=== PATIENT | male | born 1975 | race African-American/Black ===

== ENCOUNTER 2025-02-28 11:20 | Inpatient (IN) | payer MEDICARE, SELFPAY ==
[2025-02-28 11:53] LABS: #Basophils Less than 0.03 10x3/uL (0.0-0.2); #Eosinophils 0.05 10x3/uL (0.0-0.7); #Monocytes 0.35 10x3/uL (0.11-0.59); #Neutrophils 1.88 10x3/uL (1.40-6.50); %Basophils 0.6 % (0.0-1.0); %Eosinophils 1.6 % (0.0-10.0); %Lymphocytes 27.8 % (21.0-51.0); %Monocytes 10.9 % (0.0-10.0); %Neutrophils 58.8 % (42.0-75.0); Hematocrit 37.0 % (42.0-52.0); Hemoglobin 12.7 g/dL (14.0-18.0); Mean Corpuscular Hemoglobin 30.0 pg (27.0-31.0); Mean Corpuscular Volume 87.5 fL (78.0-98.0); Platelet Count 186 10x3/uL (130-400); Red Blood Cell (RBC) Count 4.23 mill/uL (4.70-6.10); White Blood Cell (WBC) Count 3.20 10x3/uL (4.8-10.8)
[2025-02-28 12:17] LABS: Troponin I 0.031 ng/mL (< 0.028)
[2025-02-28 12:22] LABS: ALT (SGPT) 8 U/L (Less than 45); AST (SGOT) 22 U/L (11-34); Albumin 3.5 g/dL (3.1-4.5); Alkaline Phosphatase 68 U/L (40-110); Anion Gap 13 mmol/L (10-20); BUN (Urea Nitrogen) 25 mg/dL (8.9-20.6); Bilirubin, Total 0.7 mg/dL (0.3-1.2); Calc. Creatinine Clearance 0 mL/min (70-130); Calcium 8.7 mg/dL (7.8-10.44); Carbon Dioxide 23 mmol/L (22-29); Chloride 106 mmol/L (98-107); Globulin 3.7 g/dL (2.4-3.5); Glucose 83 mg/dL (70-105); Potassium 3.7 mmol/L (3.5-5.1); Sodium 138 mmol/L (136-145)
[2025-02-28] MEDS ORDERED: Aspirin Chewable 81 MG TAB ONE (13:04)
[2025-02-28] MEDS ORDERED: Nitroglycerin 2% Ointment 1 INCH/1 GM Packet ONE (13:18)
[2025-02-28] MEDS ORDERED: Nitroglycerin 0.4 MG TAB 1 EACH ONE (13:19)
[2025-02-28] MEDS ORDERED: cloNIDine 0.1 MG TAB ONE (13:48)
[2025-02-28 14:15] LABS: Acetaminophen Less than 10 mcg/mL (Less than 10); Salicylate Less than 8.0 mg/dL (Less than 8.0)
[2025-02-28 14:23] LABS: Troponin I 0.028 ng/mL (< 0.028)
[2025-02-28] MEDS ORDERED: Senokot S 8.6-50 MG TAB PO PRN (14:24)
[2025-02-28] MEDS ORDERED: Nitroglycerin 0.4 MG TAB (25 Tab Bottle) SL PRN (14:24)
[2025-02-28] MEDS: Acetaminophen 325 MG TAB PO PRN (20:19)
[2025-02-28] MEDS: Melatonin 3 MG TAB PO PRN (20:19)
[2025-02-28] MEDS: Famotidine 20 MG TAB PO SCH (20:20)
[2025-03-01 05:34] LABS: Anion Gap 15 mmol/L (10-20); BUN (Urea Nitrogen) 29 mg/dL (8.9-20.6); Calc. Creatinine Clearance 69 mL/min (70-130); Calcium 8.4 mg/dL (7.8-10.44); Carbon Dioxide 24 mmol/L (22-29); Cardiac Risk 2.6 (Less than 4.5); Chloride 103 mmol/L (98-107); Cholesterol 161 mg/dl (< 200 Desired); Glucose 87 mg/dL (70-105); HDL Cholesterol 61 mg/dL (>60 Neg Risk); LDL Cholesterol, Calculated 89 mg/dL; Magnesium 2.0 mg/dL (1.6-2.6); Potassium 3.5 mmol/L (3.5-5.1); Sodium 138 mmol/L (136-145); Triglycerides 57 mg/dL (Less than 150)
[2025-03-01] MEDS: Furosemide 20 MG (2 mL) VIAL SLOW IVP SCH (05:53)
[2025-03-01] MEDS: Lisinopril 5 MG TAB PO SCH (09:50)
[2025-03-01] MEDS: Aspirin Chewable 81 MG TAB PO SCH (09:50)
[2025-03-01] MEDS: Enoxaparin 40 MG (0.4 mL) SYRINGE SC SCH (09:50)
[2025-03-01] MEDS: ALPRAZolam 0.5 MG TAB PO PRN (15:45)
[2025-03-03 05:23] LABS: #Basophils 0.03 10x3/uL (0.0-0.2); #Eosinophils 0.09 10x3/uL (0.0-0.7); #Monocytes 0.43 10x3/uL (0.11-0.59); #Neutrophils 1.75 10x3/uL (1.40-6.50); %Basophils 0.9 % (0.0-1.0); %Eosinophils 2.7 % (0.0-10.0); %Lymphocytes 30.0 % (21.0-51.0); %Monocytes 13.0 % (0.0-10.0); %Neutrophils 53.1 % (42.0-75.0); Hematocrit 36.1 % (42.0-52.0); Hemoglobin 12.2 g/dL (14.0-18.0); Mean Corpuscular Hemoglobin 29.9 pg (27.0-31.0); Mean Corpuscular Volume 88.5 fL (78.0-98.0); Platelet Count 204 10x3/uL (130-400); Red Blood Cell (RBC) Count 4.08 mill/uL (4.70-6.10); White Blood Cell (WBC) Count 3.30 10x3/uL (4.8-10.8)
[2025-03-03 05:38] VITALS: BMI 36.1
[2025-03-03 05:40] LABS: Anion Gap 15 mmol/L (10-20); BUN (Urea Nitrogen) 27 mg/dL (8.9-20.6); Calc. Creatinine Clearance 59 mL/min (70-130); Calcium 8.7 mg/dL (7.8-10.44); Carbon Dioxide 29 mmol/L (22-29); Chloride 100 mmol/L (98-107); Glucose 87 mg/dL (70-105); Potassium 3.5 mmol/L (3.5-5.1); Sodium 140 mmol/L (136-145)
[2025-03-03] MEDS: Lisinopril 20 MG TAB PO SCH (08:51)
[2025-03-03] MEDS: Metoprolol Succinate XL 25 MG ER.TAB PO SCH (08:52)
[2025-03-03] MEDS ORDERED: Metoprolol Succinate XL 50 MG ER.TAB PO SCH (09:00)
[2025-03-03 11:30] VITALS: BP 129/92; TEMP 97.8
[2025-03-03] MEDS ORDERED: Famotidine 20 MG TAB PO SCH (21:00)
== END 2025-03-03 14:00 | disposition home or self-care (01) | DRG 305 ==
LOC: ERS 11:20 → 2NO 15:18
PROVIDERS: ADMIT Hospitalist; ATTEND Family Medicine
DX: I16.0 Hypertensive urgency (principal); R44.0 Auditory hallucinations; R45.851 Suicidal ideations; I42.8 Other cardiomyopathies; N17.9 Acute kidney failure, unspecified; I45.19 Other right bundle-branch block; I44.69 Other fascicular block; I45.81 Long QT syndrome; F31.9 Bipolar disorder, unspecified; F41.9 Anxiety disorder, unspecified; R44.1 Visual hallucinations; Z79.899 Other long term (current) drug therapy; Z86.73 Personal history of transient ischemic attack (TIA), and cerebral infarction without residual deficits
CPT/HCPCS: 36415; 71045; 80048; 80053; 80061; 80307; 83735; 83880; 84443; 84484; 85025; 93005; 93306; 94760; 96374; 96376; J1650; J1940